=== PATIENT | male | born 1980 | race Two or more races ===

== ENCOUNTER 2016-08-03 20:23 | Emergency (ER) | payer MEDICAID ==
[~2016-08-03] VITALS: Ht 195.6 cm; Wt 172.4 kg
[~2016-08-03 20:23] MED LIST: INSLISPI; INSUPOW; LISI40TA; METF-316
[2016-08-03 20:43] VITALS: BP 148/85
== END 2016-08-04 00:24 | disposition left against medical advice (07) ==
LOC: EDBD 20:23 → ER 20:25
DX: Z76.1 Encounter for health supervision and care of foundling (principal); Z48.01 Encounter for change or removal of surgical wound dressing; Z53.21 Procedure and treatment not carried out due to patient leaving prior to being seen by health care provider

== ENCOUNTER 2017-02-10 02:03 | Emergency (ER) | payer SELFPAY ==
[~2017-02-10] VITALS: Ht 190.5 cm; Wt 136.1 kg
[~2017-02-10 02:03] MED LIST changes: -METF-316; +METF-372
[2017-02-10 02:22] VITALS: BP 134/108
== END 2017-02-10 04:00 | disposition left against medical advice (07) ==
LOC: ER 02:03
DX: M54.5 Low back pain (principal); Z53.21 Procedure and treatment not carried out due to patient leaving prior to being seen by health care provider

== ENCOUNTER 2017-04-06 01:29 | Emergency (ER) | payer MEDICAID ==
[~2017-04-06] VITALS: Ht 190.5 cm; Wt 135.6 kg
[2017-04-06 01:46] VITALS: BP 137/95
[2017-04-06] MEDS ORDERED: ONDANSETRON HCL 4 MG/2 ML VIAL IM ONE (03:15)
[2017-04-06] MEDS ORDERED: HYDROmorphone HCL 2 MG/ML VL IM ONE (03:15)
== END 2017-04-06 03:40 | disposition home or self-care (01) ==
LOC: ER 01:30
DX: M54.16 Radiculopathy, lumbar region (principal); M79.1 Myalgia; E11.22 Type 2 diabetes mellitus with diabetic chronic kidney disease; I12.9 Hypertensive chronic kidney disease with stage 1 through stage 4 chronic kidney disease, or unspecified chronic kidney disease; N18.9 Chronic kidney disease, unspecified; Z79.4 Long term (current) use of insulin; Z79.84 Long term (current) use of oral hypoglycemic drugs; F17.210 Nicotine dependence, cigarettes, uncomplicated
CPT/HCPCS: 72128; 72131; 96372; 99284; J1170; J2405

== ENCOUNTER 2018-06-09 01:39 | Emergency (ER) | payer MEDICAID ==
[~2018-06-09] VITALS: Ht 195.6 cm; Wt 127.0 kg
[2018-06-09 02:21] VITALS: BP 141/99
== END 2018-06-09 02:35 | disposition left against medical advice (07) ==
LOC: ER 01:41
DX: T63.301A Toxic effect of unspecified spider venom, accidental (unintentional), initial encounter (principal); Z53.21 Procedure and treatment not carried out due to patient leaving prior to being seen by health care provider; Y92.89 Other specified places as the place of occurrence of the external cause

== ENCOUNTER 2018-10-09 21:23 | Emergency (ER) | payer MEDICAID ==
[~2018-10-09] VITALS: Ht 190.5 cm; Wt 108.9 kg
[2018-10-09 21:46] VITALS: BP 128/92
== END 2018-10-10 05:13 | disposition left against medical advice (07) ==
LOC: EDBD 21:23 → ER 21:31
DX: M79.605 Pain in left leg (principal); M79.604 Pain in right leg; R26.2 Difficulty in walking, not elsewhere classified; E11.9 Type 2 diabetes mellitus without complications; Z53.21 Procedure and treatment not carried out due to patient leaving prior to being seen by health care provider

== ENCOUNTER 2019-01-06 12:51 | Emergency (ER) | payer MEDICAID ==
[~2019-01-06] VITALS: Ht 193 cm; Wt 108.9 kg
[2019-01-06 13:16] VITALS: BP 136/85
== END 2019-01-06 14:25 | disposition home or self-care (01) ==
LOC: ER 12:55
DX: S30.22XA Contusion of scrotum and testes, initial encounter (principal); G89.29 Other chronic pain; M54.5 Low back pain; E11.9 Type 2 diabetes mellitus without complications; I10 Essential (primary) hypertension; M19.90 Unspecified osteoarthritis, unspecified site; F17.210 Nicotine dependence, cigarettes, uncomplicated; X58.XXXA Exposure to other specified factors, initial encounter; Y93.89 Activity, other specified; Y99.8 Other external cause status; Y92.89 Other specified places as the place of occurrence of the external cause
CPT/HCPCS: 72100